=== PATIENT | female | born 2005 | race Hispanic/Latino ===

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

== ENCOUNTER 2023-11-01 11:31 | Outpatient (CLI) | payer OTHER | END 2023-11-01 11:32 | disposition home or self-care (01) | LOC: BICULT 11:31 | PROVIDERS: ATTEND Family Medicine | DX: O09.892 Supervision of other high risk pregnancies, second trimester (principal); O26.832 Pregnancy related renal disease, second trimester; Z3A.19 19 weeks gestation of pregnancy | CPT/HCPCS: 76805 ==